=== PATIENT | female | born 1980 | race Caucasian/White ===

== ENCOUNTER 2022-11-05 14:40 | Emergency (ER) | payer BC, MEDICAID, SELFPAY ==
[2022-11-05 14:55] VITALS: BP 133/76; PULSE 78; RESP 16; TEMP 36.7; O2SAT 98
--- NOTE | 2022-11-05 15:23 | ED.DENTAL ---
HPI - Dental/Oral General Chief complaint: Dental/Oral Stated complaint: Dental pain, abcess? Time Seen by Provider: 11/05/22 15:17 Source: RN notes reviewed History of Present Illness HPI Narrative: Patient presents emergency department from home for dental pain. Patient states that symptoms been ongoing for the past 1 week. States that she has been having pain in her upper left molar she states that there chipped and carious and have been bad for some time she states she has been using Orajel at home as well as ibuprofen with minimal relief she does not have a dentist she denies any fevers or chills difficulty swallowing or any other symptoms Related Data Allergies Allergy/AdvReac Type Severity Reaction Status Date / Time No Known Allergies Allergy Verified 06/12/18 22:55 Review of Systems Review of Systems: Gen.: Denies fevers or chills HEENT: See HPI Neuro: Denies headache Skin: Denies rash Endo: Denies DM PMFSH Past Medical History Medical History (Updated 11/05/22 @ 15:27 by Ra Morales DO) Patient denies significant medical history Social History Social History (Updated 11/05/22 @ 15:26 by Ra Morales DO) Smoking status: Never smoker Exam Narrative: APPEARANCE: No acute distress, nontoxic, resting in bed HEENT: Normocephalic, atraumatic, TMs clear bilaterally, nares patent, oral mucosa moist, airway patent, teeth 15 and 16 are carious down to the gumline with mild erythema with no fluctuance of the gum RESPIRATORY: No respiratory distress MUSCULOSKELETAl: Moves all extremities. NEURO: Awake and alert. Following commands, speech normal, no focal deficits SKIN:: Warm, dry. Normal Color PSYCHIATRIC: Normal affect/mood Course Course Emergency Course: Discussed with patient results of workup and diagnosis. Discussed need for follow-up with primary care, proper use of medication, and reasons to return to the emergency department. Patient understands and agrees to current treatment plan Vital Signs Vital signs: Vital Signs Temperature 98.0 F 11/05/22 14:55 Pulse Rate 78 11/05/22 14:55 Respiratory Rate 16 11/05/22 14:55 Blood Pressure 133/76 11/05/22 14:55 Pulse Oximetry 98 11/05/22 14:55 Oxygen Delivery Room Air 11/05/22 14:55 Temperature 98.0 F 11/05/22 14:55 Pulse Rate 78 11/05/22 14:55 Respiratory Rate 16 11/05/22 14:55 Blood Pressure 133/76 11/05/22 14:55 Pulse Oximetry 98 11/05/22 14:55 Oxygen Delivery Room Air 11/05/22 14:55 Discharge Plan Discharge Clinical Impression: Dental caries, Dental abscess Patient Disposition: Home, Self-Care Condition: Stable Instructions: Antibiotic Form, Dental Abscess (ED) Additional Instructions: Return for increasing pain fever or any other symptoms of concern Prescriptions: New penicillin V potassium 500 mg tablet 500 mg PO Q8H 10 Days Qty: 30 0RF ibuprofen 600 mg tablet 600 mg PO TID PRN (Reason: pain) Qty: 14 0RF Follow-up/Referrals: [facility] [Outside] - 1 Day [facility] [Outside] - 1 Day UNKNOWN,DOCTOR [Primary Care Provider] - Stand Alone Forms: Work/School Release IP Time of Disposition: 15:26
[2022-11-05] MEDS: HYDROcodone/acetaminophen (*CRX) 5-325 MG TABLET 1 TAB PO (15:25)
[2022-11-05] MEDS: PENICILLIN V POTASSIUM 250 MG TABLET 500 MG PO (15:28)
== END 2022-11-05 15:43 | disposition home or self-care (01) ==
PROVIDERS: Emergency Provider Emergency Medicine
DX: K02.9 Dental caries, unspecified (principal); K04.7 Periapical abscess without sinus
CPT/HCPCS: 99283; A9270